=== PATIENT | male | born 1990 | race Caucasian/White ===

== ENCOUNTER 2023-04-12 11:05 | Emergency (ER) | payer SELFPAY ==
[2023-04-12 11:12] VITALS: BP 156/100; PULSE 84; RESP 18; TEMP 97.8; BMI 22.8
[2023-04-12] MEDS ORDERED: KETOROLAC TROMETHAMINE 30 MG/1 ML VIAL IM ONE (11:36)
[2023-04-12] MEDS ORDERED: ACETAMINOPHEN 500 MG TABLET (FP) PO ONE (11:36)
[2023-04-12] MEDS ORDERED: KETOROLAC TROMETHAMINE 30 MG/1 ML VIAL ONE (11:39)
[2023-04-12] MEDS ORDERED: ACETAMINOPHEN 500 MG TABLET (FP) ONE (11:40)
== END 2023-04-12 12:46 | disposition home or self-care (01) ==
LOC: JER 11:05
PROC: 3E0233Z Introduction of Anti-inflammatory into Muscle, Percutaneous Approach (ICD-10-PCS; principal; 2023-04-12)
DX: M25.572 Pain in left ankle and joints of left foot (principal); M79.672 Pain in left foot; L84 Corns and callosities
CPT/HCPCS: 73610-TC-LT-FY; 73630-TC-LT; 99284-25